=== PATIENT | male | born 1965 | race Caucasian/White ===

== ENCOUNTER 2021-09-09 08:16 | Outpatient (CLI) | payer OTHER | END 2021-09-09 08:25 | disposition home or self-care (01) | LOC: RX STUDY 08:16 | DX: K57.20 Diverticulitis of large intestine with perforation and abscess without bleeding (principal); K62.89 Other specified diseases of anus and rectum; K63.5 Polyp of colon; Z93.3 Colostomy status ==

== ENCOUNTER 2021-12-02 09:45 | Inpatient (IN) | payer OTHER ==
[~2021-12-02] VITALS: Ht 180.3 cm; Wt 103.9 kg
[2021-12-02] MEDS ORDERED: PEPCID40 MG PO (13:38)
[2021-12-02] MEDS ORDERED: LOPRESSOR25 MG PO (13:39)
[2021-12-02] MEDS ORDERED: ZESTRIL10 M1 PO (13:39)
[2021-12-02] MEDS ORDERED: PREDNISONE20 M1 PO (13:40)
[2021-12-02] MEDS ORDERED: MESTINON60 M1 PO (13:40)
[2021-12-05] MEDS ORDERED: ATORVASTATIN CA20 MG (07:53)
[2021-12-05] MEDS ORDERED: METOPROLOL TART50 MG (07:54)
[2021-12-10] MEDS ORDERED: ULTRAM50 MG PO (15:08)
== END 2021-12-10 22:30 | disposition home or self-care (01) | DRG 331 ==
LOC: O/R 12-05 05:35 → SURH 12-05 07:00
PROVIDERS: ADMIT Surgery; ATTEND Surgery
PROC: 0DBL0ZZ Excision of Transverse Colon, Open Approach (ICD-10-PCS; 2021-12-05)
PROC: 0DB80ZZ Excision of Small Intestine, Open Approach (ICD-10-PCS; 2021-12-05)
PROC: 0DQ80ZZ Repair Small Intestine, Open Approach (ICD-10-PCS; 2021-12-05)
PROC: 0DN80ZZ Release Small Intestine, Open Approach (ICD-10-PCS; 2021-12-05)
PROC: 0DNW0ZZ Release Peritoneum, Open Approach (ICD-10-PCS; 2021-12-05)
PROC: 0DBU0ZZ Excision of Omentum, Open Approach (ICD-10-PCS; 2021-12-05)
PROC: 0DJD8ZZ Inspection of Lower Intestinal Tract, Via Natural or Artificial Opening Endoscopic (ICD-10-PCS; 2021-12-05)
PROC: 0DTG0ZZ Resection of Left Large Intestine, Open Approach (ICD-10-PCS; principal; 2021-12-05 07:00)
PROC: 4A12X4Z Monitoring of Cardiac Electrical Activity, External Approach (ICD-10-PCS; 2021-12-06)
PROC: 02HV33Z Insertion of Infusion Device into Superior Vena Cava, Percutaneous Approach (ICD-10-PCS; 2021-12-08)
PROC: 3E0436Z Introduction of Nutritional Substance into Central Vein, Percutaneous Approach (ICD-10-PCS; 2021-12-08)
PROC: 3E0F7GC Introduction of Other Therapeutic Substance into Respiratory Tract, Via Natural or Artificial Opening (ICD-10-PCS; 2021-12-08)
DX: K57.20 Diverticulitis of large intestine with perforation and abscess without bleeding (principal); D12.3 Benign neoplasm of transverse colon; K62.89 Other specified diseases of anus and rectum; K66.0 Peritoneal adhesions (postprocedural) (postinfection); K29.70 Gastritis, unspecified, without bleeding; K21.9 Gastro-esophageal reflux disease without esophagitis; I12.9 Hypertensive chronic kidney disease with stage 1 through stage 4 chronic kidney disease, or unspecified chronic kidney disease; N18.30 Chronic kidney disease, stage 3 unspecified; R06.81 Apnea, not elsewhere classified; F43.23 Adjustment disorder with mixed anxiety and depressed mood; Z43.3 Encounter for attention to colostomy; Z53.31 Laparoscopic surgical procedure converted to open procedure